=== PATIENT | female | born 1990 | race Caucasian/White ===

== ENCOUNTER 2017-09-02 08:48 | Emergency (ER) | payer OTHER | END 2017-09-02 10:48 | disposition home or self-care (01) | LOC: FTE 08:48 | DX: S99.921A Unspecified injury of right foot, initial encounter (principal); F17.210 Nicotine dependence, cigarettes, uncomplicated; X58.XXXA Exposure to other specified factors, initial encounter; Y92.9 Unspecified place or not applicable | CPT/HCPCS: 73610; 73610-RT; 73630; 99283-25 ==